=== PATIENT | male | born 1955 | race Caucasian/White ===

== ENCOUNTER 2021-10-10 08:34 | Day surgery (SDC) | payer OTHER, SELFPAY ==
[2021-10-08 14:07] LABS: ALBUMIN 3.8 g/dL (3.4-4.8); CALCIUM 8.8 mg/dL (8.4-11.0); CREATININE 0.84 mg/dL (0.55-1.30); POTASSIUM 4.1 mmol/L (3.5-5.1); TOTAL BILIRUBIN 0.4 mg/dL (0.0-1.0)
[2021-10-08 14:17] LABS: BASOPHILS % (AUTO) 0.5 % (0.0-2.0); EOSINOPHILS # (AUTO) 0.1 K/uL (0.0-0.4); EOSINOPHILS % (AUTO) 1.7 % (0.0-4.0); HEMATOCRIT 41.5 % (36-54); HEMOGLOBIN 13.9 g/dL (14.0-18.0); LYMPHOCYTES # (AUTO) 2.3 K/uL (1.0-5.5); LYMPHOCYTES % (AUTO) 30.3 % (20.5-51.5); MEAN CORPUSCULAR HEMOGLOBIN 28 pg (27-31); MEAN CORPUSCULAR HGB CONC 33 % (32-36); MEAN CORPUSCULAR VOLUME 82 fL (79.0-98.0); MONOCYTES # (AUTO) 0.5 K/uL (0.0-1.0); MONOCYTES % (AUTO) 6.1 % (1.7-9.3); NEUTROPHILS # (AUTO) 4.6 K/uL (1.8-7.7); NEUTROPHILS % (AUTO) 61.4 % (40.0-70.0); PLATELET COUNT (AUTO) 216 K/uL (130-430); RED BLOOD CELL COUNT(AUTO) 5.04 MIL/uL (4.2-6.2); RED CELL DISTRIBUTION WIDTH 13.5 % (9.0-15.0); WHITE BLOOD COUNT (AUTO) 7.5 K/uL (4.8-10.8)
[~2021-10-10] VITALS: Ht 175.3 cm; Wt 90.7 kg
[2021-10-10] MEDS ORDERED: CLINDAMYCIN PHOS 600 MG/ D5W 50 ML PREMIX IV ONE (08:45)
[2021-10-10 10:41] LABS: PROTHROMBIN TIME 10.6 SECS (9.5-12.5)
[2021-10-10] MEDS ORDERED: ePHEDrine sulfate 50 MG/ML VIAL IVP ONE (11:32)
[2021-10-10] MEDS ORDERED: ROCURONIUM BROMIDE 10 MG/ML (ZEMURON) IV ONE (11:32)
[2021-10-10] MEDS ORDERED: SEVOFLURANE 15 MIN GAS INH ONE (11:32)
[2021-10-10] MEDS ORDERED: PROPOFOL 200MG/ 20ML VIAL (DIPRIVAN) IV ONE (11:32)
[2021-10-10] MEDS ORDERED: SUCCINYLCHOLINE CHLORIDE 20 MG/ML(QUELICIN) IVP ONE (11:32)
[2021-10-10] MEDS ORDERED: EPINEPHrine 1 MG/ML VIAL IV ONE (11:32)
[2021-10-10] MEDS ORDERED: NS 1000 ML IV.SOLN IV ONE (11:32)
[2021-10-10] MEDS ORDERED: ONDANSETRON HCL 4 MG/2 ML VIAL IVP ONE (11:32)
[2021-10-10] MEDS ORDERED: NS IRRIG SOLN 1000 ML IR ONE (11:32)
[2021-10-10] MEDS ORDERED: LR 1,000 ML IV.SOLN IV ONE (11:32)
[2021-10-10] MEDS ORDERED: MIDAZOLAM HCL 5 MG/5 ML VIAL IVP ONE (11:32)
[2021-10-10] MEDS ORDERED: KETOROLAC TROMETHAMINE 30 MG VIAL IVP PRN (13:45)
[2021-10-10] MEDS ORDERED: ONDANSETRON HCL 4 MG/2 ML VIAL IVP PRN (13:45)
[2021-10-10] MEDS ORDERED: HYDROmorphone 1 MG/ML INJ. CARTRIDGE IVP PRN ×2 (13:45)
[2021-10-10 17:14] VITALS: BP_SYST 119
== END 2021-10-10 16:40 | disposition home or self-care (01) ==
LOC: SDS 08:34 → SMU 08:35 → SDS 16:40
PROVIDERS: ATTEND Orthopaedic Surgery Sports Medicine
DX: S46.091A Other injury of muscle(s) and tendon(s) of the rotator cuff of right shoulder, initial encounter (principal); M94.211 Chondromalacia, right shoulder; R79.1 Abnormal coagulation profile; I10 Essential (primary) hypertension; K21.9 Gastro-esophageal reflux disease without esophagitis; F41.9 Anxiety disorder, unspecified; G47.30 Sleep apnea, unspecified; Z99.89 Dependence on other enabling machines and devices; Z20.822 Contact with and (suspected) exposure to COVID-19; X58.XXXA Exposure to other specified factors, initial encounter; Y93.89 Activity, other specified; Y92.89 Other specified places as the place of occurrence of the external cause; Y99.8 Other external cause status
CPT/HCPCS: 29826; 29827; 36415 ×2; 64415; 71046; 76942; 80053; 85025; 85610; 85730; 87426; 93005; C1713; J0171; J0330; J2250; J2405; J2704; J3490; J7030; J7120; U0003

== ENCOUNTER 2022-08-20 14:09 | Emergency (ER) | payer OTHER ==
[~2022-08-20] VITALS: Ht 175.3 cm; Wt 88.5 kg
[2022-08-20 14:10] VITALS: BP_SYST 132
--- NOTE | 2022-08-20 14:10 | NUR ---
BROUGHT BACK TO BED #8 AND TRIAGED. REPORT GIVEN TO ESTEPHANIA
--- NOTE | 2022-08-20 14:16 | NUR ---
ER at bedside examining patient.
--- NOTE | 2022-08-20 14:30 | NUR ---
COVID AND FLU TEST ADMINSTERED AND SENT TO LAB LABELED.
[2022-08-20] MEDS ORDERED: ZIT250 PO (15:42)
[2022-08-20] MEDS ORDERED: AZITHROMYCIN 250 MG TABLET PO ONE (15:45)
--- NOTE | 2022-08-20 15:59 | NUR ---
Patient given written and verbal discharge instructions and verbalizes understanding. ER MD discussed with patient the results and treatment provided. Patient in stable condition. ID arm band removed. Rx of zithromax given. Patient educated on pain management and to follow up with PMD. Pain Scale 0/10 Opportunity for questions provided and answered. Medication side effect fact sheet provided.
[2022-08-20 16:00] VITALS: BP_SYST 130
== END 2022-08-20 15:59 | disposition home or self-care (01) ==
LOC: SED 14:09
DX: J20.8 Acute bronchitis due to other specified organisms (principal); Z79.899 Other long term (current) drug therapy; Z88.8 Allergy status to other drugs, medicaments and biological substances; Z20.822 Contact with and (suspected) exposure to COVID-19
CPT/HCPCS: 99284; 71046; 87426; 87804 ×2; Q0144; 36415